=== PATIENT | female | born 1980 | race Caucasian/White ===

== ENCOUNTER → 2018-11-04 14:32 | Outpatient (CLI) | payer MEDICAID, SELFPAY ==
[2018-11-04 12:42] VITALS: BMI 23.9
[2018-11-04 14:54] LABS: Bacteria 0 SEEN /hpf (None Seen); Mucous, Urine 0 SEEN /hpf (<or=2+); Red Blood Cells-Urine 0 SEEN /hpf (0-5); White Blood Cells 0 SEEN /hpf (0-5)
[2018-11-04 15:14] LABS: Color, Urine Yellow (Yellow); Glucose, Dipstick Normal (Normal); Ketone-Dipstick Negative (Negative); Leukocyte Esterase-Dipstick Negative /ul (Negative); Nitrite-Dipstick Negative (Negative); Occult Blood-Urine Negative /ul (Negative); Protein-Dipstick Negative (Negative); Urine Bilirubin Dipstick Negative (Negative); Urine Clarity Clear (Clear); Urine Urobilinogen Normal (Normal)
[2018-11-04 15:30] LABS: Squamous Epithelial Cells - UA 5-10 SEEN /hpf (5-10)
== END ==
PROVIDERS: Referring Provider Physician Assistant Surgical; Visit Provider Physician Assistant Surgical
DX: R35.0 Frequency of micturition (principal)
CPT/HCPCS: 81001; 87086; 87088; 87186

== ENCOUNTER → 2022-05-12 | Outpatient (CLI) | payer MEDICAID, SELFPAY ==
[2022-05-19 12:15] LABS: HPV APTIMA, High Risk Negative (Negative)
== END | disposition home or self-care (01) ==
LOC: LABSPEC 10:26
PROVIDERS: Visit Provider Student in an Organized Health Care Education/Training Program
DX: N39.0 Urinary tract infection, site not specified (principal); Z12.4 Encounter for screening for malignant neoplasm of cervix
CPT/HCPCS: 87077; 87086; 87088; 87186; 87624; 88175; G0145